=== PATIENT | female | born 1930 | race Caucasian/White ===

== ENCOUNTER 2016-10-18 17:28 | Emergency (ER) | payer OTHER, MEDICARE ==
[~2016-10-18] VITALS: Ht 149.9 cm; Wt 80.3 kg
[~2016-10-18 17:28] MED LIST: ALBUTEROL SULFAT3 M1 INH; AMRIX15 MG PO; CALCIUM600 MG PO; CO-Q-10 100 MG-1 SGL PO; ECOTRIN81 MG PO; FISH OIL CONC1000 MG PO; FUROSEMIDE20 MG PO; KLOR-CON M1010 MEQ PO; NITROGLYCERIN0.4 MG SL; PERCOCET 325 MG1 TA3 PO; PROTONIX 40MG T40 MG PO; SYMBICORT 160/41 PUF INH; TOPROL XL25 MG PO; VITAB121000 PO; [UNRECOGNIZED DRUG - CODE] PO
[2016-10-18 17:32] VITALS: BP 124/70
--- NOTE | 2016-10-18 17:48 | ED GENERAL ADULT ---
History of Present Illness General Chief Complaint: Lower Extremity Injury Stated Complaint: FALL,LT LEG INJ Source: patient Exam Limitations: no limitations Vital Signs & Intake/Output Vital Signs & Intake/Output Vital Signs Date Time Temp Pulse Resp B/P B/P Pulse O2 O2 Flow FiO2 Mean Ox Delivery Rate 10/18 1732 98.2 73 16 124/70 97 Room Air ED Intake and Output 10/19 0000 10/18 1200 Intake Total Output Total Balance Patient 177 lb Weight Weight Reported by Patient Measurement Method Allergies Coded Allergies: NO KNOWN ALLERGIES (01/03/11) Triage Note: PT STATES SHE FELL SUNDAY AM AND FX TWO BONES ON HER LEFT FOOT. PT STATES THE WALK IN SENT HER THERE. PT STATES SHE HAS INCREASED SWELLING AND PAIN Triage Nurses Notes Reviewed? yes Onset: Gradual Duration: day(s): (6) Timing: no prior history Injury Environment: home Severity: moderate Modifying Factors: Improves With: immobilization. Worsens With: movement. HPI: Patient is an 86-year-old female presenting to the emergency department with chief complaint of increased swelling and redness to left lower extremity starting over the past 2-3 days. Patient reports that she was seen and evaluated at a walk-in clinic after she twisted her left foot on Sunday of last week. She was diagnosed with a foot fracture. She was placed in an Zeke wrap and a orthopedic shoe. Patient has been icing and elevating. Reports that she noticed increased redness and swelling over her left calf. She was concerned about blood clots so decided to come in for evaluation. No fevers or chills. No nausea or vomiting. No chest pain palpitations or shortness of breath. (AMENA YANG,PIYUSH) Reconcile Medications Albuterol Sulfate 2.5 MG/3 ML (0.083 %) VIAL.NEB 1 Vial INH/JUAN C TID PRN COPD (Reported) Aspirin (Lo-Dose Aspirin EC) 81 MG TABLET.DR 1 TAB PO DAILY HEART/BLOOD ( Reported) Budesonide/Formoterol Fumarate (Symbicort 160-4.5 Mcg Inhaler) 160 MCG-4.5 MCG/ ACTUATION HFA.AER.AD 2 PUF INH PRN COPD (Reported) Cephalexin (Keflex) 500 MG CAPSULE 1 CAP PO TID cellulitis Cholecalciferol (Vitamin D3) (Vitamin D) 5,000 UNIT TABLET 1 TAB PO QAM SUPPLEMENT (Reported) Esomeprazole (Nexium) 40 MG CAPSULE.DR 1 CAP PO QAM GI (Reported) Furosemide 40 MG TABLET 1 TAB PO QAM DIURETIC (Reported) Linaclotide (Linzess) 145 MCG CAPSULE 1 CAP PO DAILY CONSTIPATION (Reported) Losartan Potassium 25 MG TABLET 1 TAB PO QPM BP (Reported) Lubiprostone (Amitiza) 24 MCG CAPSULE 1 CAP PO BID CONSTIPATION (Reported) Metoprolol Succinate 25 MG TAB 1 TAB PO QPM HEART/BP (Reported) Nitroglycerin (Nitroglycerin Patch) 0.4 MG/HOUR PATCH.TD24 1 PATCH TOP DAILY HEART (Reported) Oxycodone HCl/Acetaminophen (Percocet 7.5-325 MG Tablet) 7.5 MG-325 MG TABLET 1 TAB PO TID PRN PAIN (Reported) Polyethylene Glycol 3350 17 GRAM POWD.PACK 1 PAC PO DAILY GI (Reported) Potassium Chloride (Klor-Con M10) 10 MEQ TAB.ER.PRT 1 TAB PO QAM SUPPLEMENT ( Reported) (LAUREN VERDUZCO,DARYN Magdaleno) Past History Travel History Traveled to [place] past 21 day No Medical History Any Pertinent Medical History? 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 No (PIYUSH FIGUEREDO) Review of Systems Review of Systems Constitutional: Reports: no symptoms. Comments Review of systems: See HPI, All other systems negative. Constitutional, no chills fever or weight loss HEENT: No visual changes no sore throat no congestion Cardiovascular: No chest pain ,palpitation , orthopnea Skin, no jaundice no rashes Respiratory: No dyspnea cough sputum or hemoptysis GI: No nausea no vomiting Muscle skeletal: no back pain, no neck pain, Neurologic: No numbness no confusion Psych: No stress anxiety or depression,. Heme/endocrine: No bruising no bleeding no polyuria or polydipsia Immunology: No splenectomy or history of AIDS (AMENA YANG,PIYUSH) Physical Exam Physical Exam General Appearance: well developed/nourished, no apparent distress, alert, awake , comfortable Comments: Well-developed well-nourished person in no acute distress HEENT: Normocephalic atraumatic. Nose is atraumatic. Neck: Normal inspection Cardiovascular: Regular rate and rhythms no murmurs rubs or gallops, normal JVP Respiratory: . No respiratory distress.breath sounds clear to auscultation bilaterally Extremity: 2+ pitting edema noted in the left lower extremity with mild erythema extending up to mid urena. Positive calf tenderness to palpation in the left lower extremity. Pedal pulses are 2+ bilaterally. Several varicosities noted in the lower cherries bilaterally. Neuro: Alert oriented x3, motor sensory normal Skin: Mild warmth to palpation over the left lower extremity. Psych: Mood and affect is normal, memory and judgment is normal. Core Measures ACS in differential dx? No CVA/TIA Diagnosis: No Severe Sepsis Present: No Septic Shock Present: No (AMENA YANG,PIYUSH) Progress Differential Diagnoses I considered the following diagnoses in my evaluation of the patient: DVT, cellulitis, foot fracture, dependent edema Plan of Care: Orders Procedure Date/time Status US-UNILATERAL VENOUS DOPPLER 10/18 1800 Active Diagnostic Imaging: Viewed by Me: Radiology Read, Ultrasound. Discussed w/RAD: Radiology Read, Ultrasound. Radiology Impression: PATIENT: BETTY TRUJILLO PRESENT AGE: 86 PATIENT ACCOUNT NO: [id number] : 32 LOCATION: [facility] ORDERING PHYSICIAN: PIYUSH YANG SERVICE DATE: 10/18/16 EXAM TYPE: RAD - XRY-FOOT COMPLETE, LEFT EXAMINATION: XR FOOT, LEFT CLINICAL INFORMATION: Pain after twisting foot. COMPARISON: No relevant prior imaging available. TECHNIQUE: AP, lateral, and oblique views of the left foot. FINDINGS: There is an acute comminuted fracture involving the fifth metatarsal diaphysis. No evidence of intra-articular involvement. No dislocation. Mild soft tissue swelling of the distal foot. In addition of this acute finding there are chronic changes including a prominent hallux valgus deformity. IMPRESSION: Acute comminuted fracture involving the fifth metatarsal diaphysis. In addition of this acute finding there is a hallux valgus deformity., PATIENT: BETTY TRUJILLO PRESENT AGE: 86 PATIENT ACCOUNT NO: [id number] : LOCATION: [facility] ORDERING PHYSICIAN: PIYUSH YANG SERVICE DATE: 10/18/16 EXAM TYPE: US - US-UNILATERAL VENOUS DOPPLER EXAMINATION: DOPPLER VENOUS ULTRASOUND EXTREMITY, LEFT CLINICAL INFORMATION: Left lower extremity pain and edema. COMPARISON: None. TECHNIQUE: Grayscale, Doppler and spectral analysis of the lower extremity was performed. FINDINGS: There is no evidence for a deep venous thrombosis within the visualized lower extremity veins. There is normal flow, compression and augmentation. ADDITIONAL FINDINGS: No Pettit's cyst is identified. IMPRESSION: Unremarkable examination. Specifically, no evidence for DVT. DICTATED BY: NATE TURNER MD Initial ED EKG: none Comments: Patient informed of all imaging results. Patient has her to consult with orthopedic. She'll follow-up with same orthopedic. Educated on continuing with orthopedic shoe. She'll take Tylenol as seen for pain. Discussed with Dr. Junior and he agrees with plan. (PIYUSH FIGUEREDO) Departure Departure Time of Disposition: 1923 Disposition: HOME OR SELF CARE Condition: Stable Clinical Impression Primary Impression: Foot fracture Qualifiers: Encounter type: initial encounter Fracture type: closed Laterality: left Qualified Code: S92.902A - Unspecified fracture of left foot, initial encounter for closed fracture Secondary Impressions: Cellulitis Qualifiers: Site of cellulitis: extremity Site of cellulitis of extremity: lower extremity Laterality: left Qualified Code: L03.116 - Cellulitis of left lower limb Referrals: ESTEBAN VERDUZCO,RAND Wall (PCP/Family) Additional Instructions: Follow-up with your orthopedic as scheduled continue wearing the orthopedic shoe and Zeke wrap as directed previously. Rest ice and elevate affected extremity. Take antibiotics as prescribed. Return for worsening symptoms or concerns. Departure Forms: Customer Survey General Discharge Information (PIYUSH FIGUEREDO) Departure Prescriptions: Current Visit Scripts Cephalexin (Keflex) 1 CAP PO TID #30 CAP PA/NETWORK SECURITY ENGINEER Co-Sign Statement Statement: ED Attending supervision documentation- [] I saw and evaluated the patient. I have also reviewed all the pertinent lab results and diagnostic results. I agree with the findings and the plan of care as documented in the PA's/NETWORK SECURITY ENGINEER's documentation. [x] I have reviewed the ED Record and agree with the PA's/NETWORK SECURITY ENGINEER's documentation. [] Additions or exceptions (if any) to the PAs/NETWORK SECURITY ENGINEER's note and plan are summarized below: [] (LAUREN VERDUZCO,DARYN Magdaleno) Procedures Splinting Location: left foot Manual Alignment Performed: No Pre-Made Type: ortho shoe Splint: ortho shoe Splint Applied By: splint applied by me Pre-Proc Neuro Vasc Exam: normal Post-Proc Neuro Vasc Exam: normal Progress: toelrated procedure well (PIYUSH FIGUEREDO) Critical Care Note Critical Care Note Critical Care Time: non-applicable (PIYUSH FIGUEREDO)
[2016-10-18] MEDS ORDERED: AMITIZA24 MC1 PO (18:38)
[2016-10-18] MEDS ORDERED: PERCOCET 7.5-31 EACH PO (18:38)
[2016-10-18] MEDS ORDERED: LINZESS145 MC1 PO (18:38)
--- NOTE | 2016-10-18 18:38 | RADIOLOGY REPORT ---
EXAMINATION: XR FOOT, LEFT CLINICAL INFORMATION: Pain after twisting foot. COMPARISON: No relevant prior imaging available. TECHNIQUE: AP, lateral, and oblique views of the left foot. FINDINGS: There is an acute comminuted fracture involving the fifth metatarsal diaphysis. No evidence of intra-articular involvement. No dislocation. Mild soft tissue swelling of the distal foot. In addition of this acute finding there are chronic changes including a prominent hallux valgus deformity. IMPRESSION: Acute comminuted fracture involving the fifth metatarsal diaphysis. In addition of this acute finding there is a hallux valgus deformity.
[2016-10-18] MEDS ORDERED: NEXIUM40 M1 PO (18:39)
[2016-10-18] MEDS ORDERED: FUROSEMIDE40 M1 PO (18:39)
[2016-10-18] MEDS ORDERED: LO-DOSE ASPIRIN81 MG PO (18:40)
[2016-10-18] MEDS ORDERED: LOSARTAN POTASS25 M1 PO (18:41)
[2016-10-18] MEDS ORDERED: KLOR-CON M1010 ME1 PO (18:42)
[2016-10-18] MEDS ORDERED: METOPROLOL SUCC25 M1 PO (18:44)
[2016-10-18] MEDS ORDERED: VITAMIN D5000 UNIT PO (18:45)
[2016-10-18] MEDS ORDERED: POLYETHYLENE GL17 GM PO (18:46)
[2016-10-18] MEDS ORDERED: ALBUTEROL2.5 MG/3 M INH/SOL (18:47)
[2016-10-18] MEDS ORDERED: SYMBICORT 16010.2 GM INH (18:47)
[2016-10-18] MEDS ORDERED: NITROGLYCERIN1 EACH TOP (18:48)
--- NOTE | 2016-10-18 19:18 | ULTRASOUND REPORT ---
EXAMINATION: DOPPLER VENOUS ULTRASOUND EXTREMITY, LEFT CLINICAL INFORMATION: Left lower extremity pain and edema. COMPARISON: None. TECHNIQUE: Grayscale, Doppler and spectral analysis of the lower extremity was performed. FINDINGS: There is no evidence for a deep venous thrombosis within the visualized lower extremity veins. There is normal flow, compression and augmentation. ADDITIONAL FINDINGS: No Pettit's cyst is identified. IMPRESSION: Unremarkable examination. Specifically, no evidence for DVT.
[2016-10-18] MEDS ORDERED: KEFLEX500 M1 PO (20:00)
== END 2016-10-18 20:07 ==
LOC: ERH 17:28
DX: S92.352A Displaced fracture of fifth metatarsal bone, left foot, initial encounter for closed fracture (principal); L03.116 Cellulitis of left lower limb; X58.XXXA Exposure to other specified factors, initial encounter; Y92.9 Unspecified place or not applicable; Y93.9 Activity, unspecified
CPT/HCPCS: 73630-LT

== ENCOUNTER 2016-10-30 11:48 | Inpatient (IN) | payer OTHER, MEDICARE ==
[~2016-10-30] VITALS: Ht 149.9 cm; Wt 80.7 kg
[~2016-10-30 11:48] MED LIST changes: +ALBUTEROL2.5 MG/3 M INH/SOL; +AMITIZA24 MC1 PO; +FUROSEMIDE40 M1 PO; +KEFLEX500 M1 PO; +KLOR-CON M1010 ME1 PO; +LINZESS145 MC1 PO; +LO-DOSE ASPIRIN81 MG PO; +LOSARTAN POTASS25 M1 PO; +METOPROLOL SUCC25 M1 PO; +NEXIUM40 M1 PO; +NITROGLYCERIN1 EACH TOP; +PERCOCET 7.5-31 EACH PO; +POLYETHYLENE GL17 GM PO; +SYMBICORT 16010.2 GM INH; +VITAMIN D5000 UNIT PO
--- NOTE | 2016-10-30 11:56 | NUR ---
PT SENT IN BY DR. ANGEL FOR LEFT FOOT CELLULITIS. PER MD PT HAS BEEN TAKING ORAL ANTIBIOTICS FOR A WEEK WITH NO IMPROVEMENT. PT CONTINUES TO HAVE INTERMITTENT FEVERS AND INFECTION IS SPREADING FROM FOOT AND GOING UP LEFT LEG. PT STATES MD WOULD LIKE PT ADMITTED FOR IV ABX
--- NOTE | 2016-10-30 12:41 | NUR ---
RESIDENT AT BEDSIDE FOR EVAL.
--- NOTE | 2016-10-30 13:28 | ED SKIN/ALLERGY COMPLAINT ---
History of Present Illness General Chief Complaint: Lower Extremity Problems Stated Complaint: L FOOT INFECTION Source: patient, family Exam Limitations: no limitations Allergies Coded Allergies: NO KNOWN ALLERGIES (01/03/11) Reconcile Medications Albuterol Sulfate 2.5 MG/3 ML (0.083 %) VIAL.NEB 1 Vial INH/JUAN C TID PRN COPD (Reported) Aspirin (Lo-Dose Aspirin EC) 81 MG TABLET.DR 1 TAB PO DAILY HEART/BLOOD ( Reported) Budesonide/Formoterol Fumarate (Symbicort 160-4.5 Mcg Inhaler) 160 MCG-4.5 MCG/ ACTUATION HFA.AER.AD 2 PUF INH PRN COPD (Reported) Cephalexin (Keflex) 500 MG CAPSULE 1 CAP PO TID cellulitis Cholecalciferol (Vitamin D3) (Vitamin D) 5,000 UNIT TABLET 1 TAB PO QAM SUPPLEMENT (Reported) Esomeprazole (Nexium) 40 MG CAPSULE.DR 1 CAP PO QAM GI (Reported) Furosemide 40 MG TABLET 1 TAB PO QAM DIURETIC (Reported) Linaclotide (Linzess) 145 MCG CAPSULE 1 CAP PO DAILY CONSTIPATION (Reported) Losartan Potassium 25 MG TABLET 1 TAB PO QPM BP (Reported) Lubiprostone (Amitiza) 24 MCG CAPSULE 1 CAP PO BID CONSTIPATION (Reported) Metoprolol Succinate 25 MG TAB 1 TAB PO QPM HEART/BP (Reported) Nitroglycerin (Nitroglycerin Patch) 0.4 MG/HOUR PATCH.TD24 1 PATCH TOP DAILY HEART (Reported) Oxycodone HCl/Acetaminophen (Percocet 7.5-325 MG Tablet) 7.5 MG-325 MG TABLET 1 TAB PO TID PRN PAIN (Reported) Polyethylene Glycol 3350 17 GRAM POWD.PACK 1 PAC PO DAILY GI (Reported) Potassium Chloride (Klor-Con M10) 10 MEQ TAB.ER.PRT 1 TAB PO QAM SUPPLEMENT ( Reported) Sulfamethoxazole/Trimethoprim (Sulfamethoxazole-Tmp Ds Tablet) 800 MG-160 MG TABLET 1 TAB PO BID ANTIBIOTIC, INFECTION (Reported) Triage Note: PT SENT IN BY DR. ANGEL FOR LEFT FOOT CELLULITIS. PER MD PT HAS BEEN TAKING ORAL ANTIBIOTICS FOR A WEEK WITH NO IMPROVEMENT. PT CONTINUES TO HAVE INTERMITTENT FEVERS AND INFECTION IS SPREADING FROM FOOT AND GOING UP LEFT LEG. PT STATES MD WOULD LIKE PT ADMITTED FOR IV ABX PT TEMP ON ARRIVAL 99.8, PT BP 90/53. PER PT BP NORMALLY RUNS 107/60 Triage Nurses Notes Reviewed? yes Onset: 2 weeks ago Duration: week(s): Location: L foot Associated Symptoms: edema, fever, malaise HPI: Patient is a 86-year-old female with past medical history of GERD, hypertension, COPD, prior myalgia, arthritis, obstructive sleep apnea presenting for worsening left foot cellulitis. The patient states that her symptoms began 2 weeks ago when she fell and broke her fifth metatarsal. A few days later she noted erythema that was warm and tender to the touch on her left foot. She was last seen at the [place] emergency department on October 18 and was prescribed cephalexin for her cellulitis. The patient reports that the cephalexin made her feel sick and she followed up with her primary care physician Dr. Nunn who switched her antibiotics last week. The patient is unsure which antibiotic she has been taking the last week. The patient saw Dr. Nunn today for worsening cellulitis despite oral antibiotics and he suggested that she come into the emergency department to be admitted for IV antibiotics. Her cellulitis is associated with fevers with Tmax @ 101.7, chills, headaches, dizziness, confusion, shortness of breath, and nausea causing her to have decreased appetite. She denies any night sweats, chest pain, abdominal pain, vomiting, or changes in elimination. (EVI VERDUZCO,[facility]) Vital Signs & Intake/Output Vital Signs & Intake/Output Vital Signs Date Time Temp Pulse Resp B/P B/P Pulse O2 O2 Flow FiO2 Mean Ox Delivery Rate 10/30 1851 101.6 10/30 1808 101.6 77 18 130/60 96 10/30 1605 98.6 68 18 118/57 93 Room Air 10/30 1414 99.4 71 16 94/52 93 Room Air 10/30 1157 99.8 75 20 90/53 97 Room Air Past History Travel History Traveled to [place] past 21 day No Medical History Any Pertinent Medical History? 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 No (CRISTIN STEVE MDH) Medical History Any Pertinent Medical History? see below for history (KATHY ESPINO DO) Review of Systems Review of Systems Constitutional: Reports: see HPI, chills, fever, malaise. Denies: diaphoresis. Respiratory: Reports: short of breath. Cardiovascular: Denies: chest pain. GI: Reports: nausea. Denies: abdominal pain, changes in stool, vomiting. Genitourinary: Denies: dysuria, frequency, nocturia. Neurological/Psychological: Reports: confusion, headache. (YURI STEVE MD) Review of Systems Constitutional: Reports: no symptoms. EENTM: Reports: no symptoms. Respiratory: Reports: no symptoms. Cardiovascular: Reports: no symptoms. GI: Reports: no symptoms. Genitourinary: Reports: no symptoms. Musculoskeletal: Reports: see HPI. Skin: Reports: see HPI. Neurological/Psychological: Reports: weakness. Hematologic/Endocrine: Reports: no symptoms. Immunologic/Allergic: Reports: no symptoms. All Other Systems: Reviewed and Negative (KATHY ESPINO DO) Physical Exam Physical Exam General Appearance: well developed/nourished, no apparent distress, alert, awake Head: atraumatic, normal appearance Eyes: Bilateral: PERRL, EOMI. Neck: normal inspection, supple, no lymphadenopathy Respiratory: normal breath sounds Cardiovascular: regular rate/rhythm, 4+ pitting edema bilaterally of lower extremity, no JVD Peripheral Pulses: 2+ radial (R), 2+ radial (L), 2+ tibialis posterior (R), 2+ tibialis posterior ( L), 2+ dorsalis pedis (R), 2+ dorsalis pedis (L) Gastrointestinal: normal bowel sounds, soft, non-tender Extremities: normal capillary refill, 5/5 strength b/l of all peripheral extremities, R calf tenderness with palpation, L foot erythema, warm to touch, tender upon palpation (EVI VERDUZCO,YURI) Progress Differential Diagnosis: abscess/cellulitis, allergic reaction, anaphylaxis, contact dermatitis, drug reaction, urticaria, DVT Radiology Impression: venous doppler negative for DVT Initial ED EKG: none Comments: Patient presenting for worsening L leg cellulitis s/p failed outpt therapy. T- max 101.6. Was given 650mg tylenol in ED. WBC 4.4. Also found to have BUN 43 and Cr 3.5 (baseline 1.0). Was given 2L of fluid for possible sepsis and intial BP of 90/53. BP now 130/60. 1 dose 1500mg unasyn given for cellulitis in ED. Lactic acid 1.0. CXR still pending for concern of CHF due to 4+ pitting edema b/l but no crackles on exam. Foot XR still pending. UA negative. B/L doppler negative for DVT. Patient has difficulty voiding and was straight cathed in ED. Blood cultures pending. Pt being admitted for IV abx and treatment of GODWIN. (EVI VERDUZCO,[facility]) Plan of Care: Orders Procedure Date/time Status Heart Healthy Diet 10/31 B Active ED Holding Orders 10/30 1926 Active Admit to inpatient 10/30 1926 Active Vital Signs 10/30 192 Active Code Status 10/30 192 Active URINE SMEAR FOR EOS 10/30 185 Active URINALYSIS 10/30 1856 Active Straight Cath 10/30 1825 Active Patient Data 10/30 1807 Active LACTIC ACID 10/30 1614 Active B-TYPE NATRIURETIC PEP (BNP) 10/30 1600 Complete XRY-PORTABLE CHEST XRAY 10/30 1328 Active XRY-FOOT COMPLETE, LEFT 10/30 1314 Active BLOOD CULTURE 10/30 1314 Active LACTIC ACID 10/30 1314 Complete COMPREHENSIVE METABOLIC PANEL 10/30 1314 Complete CBC WITHOUT DIFFERENTIAL 10/30 1314 Complete Laboratory Tests 10/30/16 1930: Ur Eosinophil Smear Pending 10/30/16 1930: Urine Color Pending, Urine Clarity Pending, Urine pH Pending, Ur Specific [place] Pending, Urine Protein Pending, Urine Ketones Pending, Urine Nitrite Pending, Urine Bilirubin Pending, Urine Urobilinogen Pending, Ur Leukocyte Esterase Pending, Ur Microscopic Pending, Urine Hemoglobin Pending, Urine Glucose Pending 10/30/16 1600: Anion Gap 12, Estimated GFR 12 L, BUN/Creatinine Ratio 12.3, Glucose 88, Lactic Acid 1.0, Calcium 9.0, Total Bilirubin 0.4, AST 32, ALT 40, Alkaline Phosphatase 77, Cmu-S-Fsnwkicwujk Pept 2050 H, Total Protein 6.1 L, Albumin 3.7, Globulin 2.4, Albumin/Globulin Ratio 1.5, CBC w Diff NO MAN DIFF REQ, RBC 3.21 L, MCV 93.8, MCH 31.7 H, RDW 13.9, MPV 8.1, Gran % 60.5, Lymphocytes % 17.9 L, Monocytes % 7.1, Eosinophils % 14.2 H, Basophils % 0.3, Absolute Granulocytes 2.7, Absolute Lymphocytes 0.8 L, Absolute Monocytes 0.3, Absolute Eosinophils 0.6, Absolute Basophils 0, PUBS MCHC 33.8 10/30/16 1336: Fyj-U-Zpysyqgviwd Pept Cancelled Microbiology 10/30 1600 BLOOD: Blood Culture - RECD 10/30 1314 BLOOD: Blood Culture - ORD Initial ED EKG: NSR (KATHY ESPINO DO) Departure Departure Condition: Stable Referrals: RAND ORELLANA MD (PCP/Family) Departure Forms: Customer Survey General Discharge Information Admission Note Spoke With: KIMBERLY MORRIS MD Documentation of Exam: Documentation of any treatments & extenuating circumstances including Concerns Regarding Discharge (functional status, medication knowledge or non-compliance, living conditions, etc.) that warrant an admission rather than observation: (EVI VERDUZCO,[facility]) Departure Disposition: STILL A PATIENT Clinical Impression Primary Impression: Cellulitis Admission Note Spoke With: KIMBERLY MORRIS MD Documentation of Exam: Documentation of any treatments & extenuating circumstances including Concerns Regarding Discharge (functional status, medication knowledge or non-compliance, living conditions, etc.) that warrant an admission rather than observation: [ Patient needs admission for IV antibiotics, leg elevation, consider wound consultation. She status post hypotension, leukocytosis, failing outpatient oral antibiotics] PA/POTATO INSPECTOR Co-Sign Statement Statement: ED Attending supervision documentation- [] I saw and evaluated the patient. I have also reviewed all the pertinent lab results and diagnostic results. I agree with the findings and the plan of care as documented in the PA's/POTATO INSPECTOR's documentation. [] I have reviewed the ED Record and agree with the PA's/POTATO INSPECTOR's documentation. [] Additions or exceptions (if any) to the PAs/POTATO INSPECTOR's note and plan are summarized below: [] Resident Co-Sign Statement Statement: ED Attending supervision documentation- [X] I saw and evaluated the patient. I have also reviewed all the pertinent lab results and diagnostic results. I agree with the findings and the plan of care as documented in the Resident's documentation. [] I have reviewed the ED Record and agree with the Resident's documentation. [] Additions or exceptions (if any) to the Resident's note and plan are summarized below: [] Left lower extremity cellulitis (KATHY SEPINO DO.)
--- NOTE | 2016-10-30 13:28 | NUR ---
PT TO RAD.
[2016-10-30] MEDS ORDERED: SULFAMETHOXAZO1 EAC1 PO (14:47)
--- NOTE | 2016-10-30 15:00 | NUR ---
UNABLE TO ACCESS IV/LABS X2
--- NOTE | 2016-10-30 15:31 | NUR ---
ASSUMED CARE OF PT. PT IN ULTRASOUND
--- NOTE | 2016-10-30 15:51 | ULTRASOUND REPORT ---
EXAMINATION: US TRIPLEX OF LOWER EXTREMITIES, BILATERAL CLINICAL INFORMATION: Bilateral lower extremity edema pain swelling inflammation and tenderness COMPARISON: None TECHNIQUE: Color-flow triplex imaging with spectral analysis and compression Doppler were performed on the lower extremities. FINDINGS: Respiratory variation, normal compression and augmented flow are noted throughout the lower extremities. The visualized common femoral vein, superficial femoral vein, profunda femoral vein, popliteal vein and midcalf peroneal and posterior tibial venous segments show no evidence of deep venous thrombosis. There is no Pettit's cyst. IMPRESSION: Normal triplex scan without evidence of deep venous thrombosis involving the lower extremities.
--- NOTE | 2016-10-30 16:05 | NUR ---
RETURNED FROM ULTRASOUND. IV AND ONE SET OF CULTURES OBTAINED. PT DIFFICULT STICK, UNABLE TO GET SECOND SET OF CULTURES
[2016-10-30 16:13] LABS: ABSOLUTE BASOPHIL COUNT 0 /CUMM (0.0-0.2); ABSOLUTE EOSINOPHIL COUNT 0.6 /CUMM (0.0-0.7); ABSOLUTE GRANULOCYTE CT 2.7 /CUMM (1.4-6.5); ABSOLUTE LYMPH COUNT 0.8 /CUMM (1.2-3.4); ABSOLUTE MONOCYTE COUNT 0.3 /CUMM (0.10-0.60); BASOPHIL % 0.3 % (0.0-2.0); EOSINOPHIL % 14.2 % (0-5); GRANULOCYTE % 60.5 % (42.2-75.2); HEMATOCRIT 30.1 % (37-47); MEAN CORPUSCULAR HGB 31.7 PG (27.0-31.0); MEAN CORPUSCULAR HGB CONC 33.8 G/DL (33.0-37.0); MEAN CORPUSCULAR VOLUME 93.8 FL (81.0-99.0); MEAN PLATELET VOLUME 8.1 FL (7.4-10.4); PLATELET COUNT 238 /CUMM (130-400); RBC DISTRIBUTION WIDTH 13.9 % (11.5-14.5); RED BLOOD CELL CT 3.21 /CUMM (4.20-5.40); WHITE BLOOD CELL COUNT 4.4 /CUMM (4.8-10.8)
--- NOTE | 2016-10-30 16:13 | NUR ---
PT DIFFICULT STICK ONLY ABLE TO OBTAIN ONE B/C SET LABS DRAWN AND SENT, LAV,YELLOW,BLUE,JAVIER,PINK TOP
--- NOTE | 2016-10-30 17:30 | NUR ---
PT COMPLAINING OF BEING COLD. EXTRA BLANKETS PLACED ON PT.
--- NOTE | 2016-10-30 18:51 | NUR ---
PT WITH URGE TO VOID. UNABLE TO VOID ON BEDPAN. PT TOO WEAK TO STAND UP AND USE COMMODE. BLADDER SCAN DONE AND READ 150-200CC OF URINE IN BLADDER. ORDER RECIEVED TO CATH PT. CATH INSERTED WITHOUT DIFFICULTY-APPROX 400CC OUTPUT CLEAR URINE
--- NOTE | 2016-10-30 18:53 | NUR ---
TYLENOL GIVEN FOR TEMP
--- NOTE | 2016-10-30 19:43 | History & Physical ---
MICHOACANO VERDUZCO,ANAND 10/30/161941: General Information and HPI MD Statement: I have seen and personally examined BETTY TRUJILLO and documented this H&P. The patient is a 86 year old F who presented with a patient stated chief complaint of [cellulitis]. Source of Information: patient, old records Exam Limitations: no limitations History of Present Illness: pt is an 86 yo F with a pmh significant for HTN, COPD , spinal stenosis, disc herniation, fibromyalgia, arthritis, GERD, and constipation. She presents to the ED today at the recommendation of her PCP Dr. Nunn for unresolving LLE cellulitis. Approximately two weeks ago she suffered a fall, and broke her 5th metatarsal. She presented to the ED on 10/18 with erythema, swelling, and tenderness, she was discharged on cephalexin. Her PCP switched her to bactrim. Despite antibiotic treatment the redness continued to spread, the pain became worse and the pt experienced nightly fevers and chills. In the ED today, she is complaining of headache, chills, SOB, nausea, blurred vision, and decreased PO intake. She chest pain, cough, night sweats, abdominal pain, vomiting, or changes in urine or bowel movements. Allergies/Medications Allergies: Coded Allergies: NO KNOWN ALLERGIES (01/03/11) Home Med list Albuterol Sulfate 2.5 MG/3 ML (0.083 %) VIAL.NEB 1 Vial INH/JUAN C TID PRN COPD (Reported) Aspirin (Lo-Dose Aspirin EC) 81 MG TABLET.DR 1 TAB PO DAILY HEART/BLOOD ( Reported) Budesonide/Formoterol Fumarate (Symbicort 160-4.5 Mcg Inhaler) 160 MCG-4.5 MCG/ ACTUATION HFA.AER.AD 2 PUF INH PRN COPD (Reported) Cholecalciferol (Vitamin D3) (Vitamin D) 5,000 UNIT TABLET 1 TAB PO QAM SUPPLEMENT (Reported) Esomeprazole (Nexium) 40 MG CAPSULE.DR 1 CAP PO QAM GI (Reported) Furosemide 40 MG TABLET 1 TAB PO QAM DIURETIC (Reported) Linaclotide (Linzess) 145 MCG CAPSULE 1 CAP PO DAILY CONSTIPATION (Reported) Losartan Potassium 25 MG TABLET 1 TAB PO QPM BP (Reported) Lubiprostone (Amitiza) 24 MCG CAPSULE 1 CAP PO BID CONSTIPATION (Reported) Metoprolol Succinate 25 MG TAB 1 TAB PO QPM HEART/BP (Reported) Nitroglycerin (Nitroglycerin Patch) 0.4 MG/HOUR PATCH.TD24 1 PATCH TOP DAILY HEART (Reported) Oxycodone HCl/Acetaminophen (Percocet 7.5-325 MG Tablet) 7.5 MG-325 MG TABLET 1 TAB PO TID PRN PAIN (Reported) Polyethylene Glycol 3350 17 GRAM POWD.PACK 1 PAC PO DAILY GI (Reported) Potassium Chloride (Klor-Con M10) 10 MEQ TAB.ER.PRT 1 TAB PO QAM SUPPLEMENT ( Reported) Past History Travel History Traveled to [place] past 21 day No Medical History Neurological: NONE EENT: NONE Cardiovascular: hypertension Respiratory: COPD Gastrointestinal: GERD, hiatal hernia Hepatic: NONE Renal: NONE Musculoskeletal: fibromyalgia, osteoarthritis, CHRONIC BACK PAIN Psychiatric: NONE Endocrine: NONE Blood Disorders: NONE Cancer(s): NONE 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 EENTM: Reports: blurred vision. Denies: eye pain. Cardiovascular: Denies: chest pain. Respiratory: Reports: short of breath. Denies: cough. GI: Reports: constipation, nausea. Denies: abdominal pain, melena, bloody stool, changes in stool, vomiting. Genitourinary: Denies: dysuria, hematuria, pain. Musculoskeletal: Reports: muscle pain. Skin: Reports: erythema. Denies: dryness, lesions. Neurological/Psychological: Reports: headache. Exam & Diagnostic Data Last 24 Hrs of Vital Signs/I&O Vital Signs Date Time Temp Pulse Resp B/P B/P Pulse O2 O2 Flow FiO2 Mean Ox Delivery Rate 10/30 2242 98.2 74 20 108/50 93 Room Air 10/30 2214 Room Air 10/30 2124 100.4 75 20 106/42 94 Room Air 10/308 101.4 73 18 102/44 93 Room Air 10/30 1851 101.6 10/30 1808 101.6 77 18 130/60 96 10/30 1605 98.6 68 18 118/57 93 Room Air 10/30 1414 99.4 71 16 94/52 93 Room Air 10/30 1157 99.8 75 20 90/53 97 Room Air Intake & Output 10/31 0800 10/31 0000 10/30 1600 Intake Total 1220 Output Total 1100 Balance 120 Intake, IV 1100 Intake, Oral 120 Output, Urine 1100 Patient 178 lb Weight Physical Exam General Appearance Alert, Oriented X3, Cooperative, No Acute Distress Skin Temp/Moisture Exam: Warm/Dry Sepsis Skin Exam (color): Normal for Ethnicity HEENT Atraumatic, PERRLA, EOMI, mucous membranes were dry on exam Neck Supple, JVD with positive hepatojugular reflux Cardiovascular Regular Rate, Normal S1, Normal S2, No Murmurs Lungs Clear to Auscultation, Normal Air Movement Abdomen Normal Bowel Sounds, Soft, No Hepatospenomegaly, No Masses, mild TTP in the LUQ Neurological Normal Speech, Strength at 5/5 X4 Ext, Sensation Intact, Cranial Nerves 3-12 NL Extremities Normal Pulses, LLE between the knee and ankle is warm, erythematous and tender to palpation worse on the posterior aspect, L foot is TTP 2/2 fracture of the 5th metatarsal , RLE on the medial calf, warm, erythema, and TTP , much less than on L Vascular Normal Pulses, Pulses Symmetrical Sepsis Peripheral Pulse Location: Dorsalis Pedis Sepsis Peripheral Pulse Exam: Normal Sepsis Cap Refill Exam: <2 Sec Diagnostic Data EKG Results EKG showed sinus rhythm at rate 74, AL 180, QRS 70, QTc 440 CXR Results US TRIPLEX OF LOWER EXTREMITIES, BILATERAL IMPRESSION: Normal triplex scan without evidence of deep venous thrombosis involving the lower extremities. Assessment/Plan Assessment: pt is an 86 yo F with a pmh significant for HTN, ?COPD , spinal stenosis, disc herniation, fibromyalgia, arthritis, GERD, and constipation. She presented to the ED today with LLE cellulitis after failing outpatient antibiotic therapy. In the Ed she was given 1 dose of IV Unasyn, and a 2.5 L NS bolus. #L Leg Cellulitis After the dose of unasyn, her temperature sade to from 99.8 to 101.6. No urine eos were seen but this brings up concern for potential acute interstitial nephritis. - admit to gen med - c/w unasyn, if fever or increase in Cr switch to clindamycin - f/u blood cultures and change antibiotics accordingly - f/u lactic acid, 1.0 on admission - pain management - keep leg elevated #GODWIN BUN 43, creatinine of 3.5 (last creatinine was 1.0 two years ago) -IVF 100 mL/hour for 1 L, reassess in AM. #DVT prophylaxis DVT ruled out by U/S in ED - heparin SQ #Diet -heart healthy #code status -Full Code As Ranked By This Provider Problem List: 1. Cellulitis Core Measures/Miscellaneous Acute Coronary Syndrome ACS Diagnosis: No Cerebrovascular Accident CVA/TIA Diagnosis: No Congestive Heart Failure CHF Diagnosis: No VTE (View Protocol) VTE Risk Factors: Age > 40, Obesity No [facility] prophylaxis d/t: No contraindications No VTE Pharm Prophylaxis d/t: No contraindications VTE Diagnosis: No VTE Type: NONE VTE Confirmed by (Test): NONE Sepsis (View Protocol) Severe Sepsis Present: No Septic Shock Septic Shock Present: No Miscellaneous Documentation Attending Case Discussed With: ALEXANDRA VERDUZCO,KIMBERLY Primary Care Physician: RAND ORELLANA MD Patient sees these Specialists Dr Nunn PCP Dr Bishop Cardiology Dr Corrigan Level of Patient Care: General Medicine VIMAL ELIZABETH MD 10/31/16 0020: Resident Review Statement Resident Statement: examined this patient, discussed with internet consultant, agreed with internet consultant, reviewed EMR data (avail), discussed with nursing, reviewed images Other Findings: 86-year-old female with past medical history of hypertension (follows Dr Bishop ), COPD (follows Dr Corrigan, but PFT from 2013 was normal), spinal stenosis, disc herniation, GERD, constipation, and a recent emergency department visit for left lower extremity cellulitis was referred from primary care physician (Dr Nunn) to the ED today for evaluation and management of out patient antibiotic therapy failure for lower extremity cellulitis. Her symptoms had started after she fell and broke her fifth metatarsal, and noticed swelling, pain and redness. She had received cephalexin initially from the ED and was switched to Bactrim by her PCP, but continued to have fevers, chills, nausea, worsening pain/swelling/redness of lower extremity despite the oral antibiotics. In the emergency department, she initially presented with low blood pressure 90/ 53, pulse 75, temperature 99.8, respirations 20, pulse ox 97% on room air. She received 1 dose of IV Unasyn, and 2.5L normal saline bolus which improved the blood pressure to 130/60 and pulse 77. However at the time of interview, her temperature was 101.4 F and blood pressure had dropped to 102/44 with pulse 73. On examination, patient was obese, comfortable, not in distress, and dry mucosa, bilateral fine crepitations over the lower lung base, not in respiratory distress, JVD with positive hepatojugular reflux present. Lower extremity examination revealed bilateral leg swelling with prominent erythema over the legs L>R, significant tenderness, but no open wound. Distal neurovascular and sensory status was intact. EKG showed sinus rhythm at rate 74, AL 180, QRS 70, QTc 440. Echo done in 06/25/2013 showed ejection fraction more than 65% with stage I diastolic heart failure, mild MR pain RV systolic pressure 35. She doesn't have leukocytosis (WBC 4.4, 60% granulocytes, no bandemia) with eosinophilia 14.2%, H&H is 10.1/30.1, platelet 238, chemistry shows increased creatinine of 3.5 (last creatinine was 1.0 two years ago), BUN 43, sodium 135, potassium 5.0, glucose 88, lactic acid 1.0. Her proBNP was high 2049. Urinalysis was negative and no eosinophilia in the smear. Bilateral lower extremity Doppler ultrasound did not reveal any DVT or ruptured Pettit's cyst. Patient is currently being admitted for management of following issues: #Left lower extremity cellulitis, failed outpatient treatment Patient continued to have worsening symptoms despite on oral antibiotics as an outpatient, thus warrants an inpatient management with IV antibiotics. * Continue IV Unasyn, adjusted to renal dose, pending blood cultures * If the patient continues to have fever, or high creatinine (question about eosinophilia due to cephalexin that can also be caused by Unasyn theoritically), next antibiotic of choice could be clindamycin. * Continue IV hydration at 100 mL per hour with 1 L for now * Lactic acid initially was 1.0, we'll trend one more time * Limb elevation * Adequate pain management * DVT prophylaxis with heparin subcutaneous #GODWIN Cr today is 3.5, and the last one was 1.0 two yrs ago. * Hold antihypertensive medications for now, given the low blood pressure, and the GODWIN * Continue IV hydration, avoid nephrotoxic drugs, make sure of no obstruction ( bladder scan if low urine output to rule out obstruction). #Continue rest of her home medications. #Diet: Heart healthy #DVT ppx: SQ Heparin #Code status: Full code LINNETTE MCGILL 10/31/16 0201: Attending MD Review Statement Attending Statement Attending MD Statement: examined this patient, discuss w/resident/PA/BILLING MACHINE OPERATOR, agreed w/resident/PA/BILLING MACHINE OPERATOR, reviewed EMR data (avail), reviewed images, amended to note Attending Assessment/Plan: CC: Left foot cellulitis PMH: HTN, BETITO, GERD, COPD/restrictive disease, hard of hearing, spinal stenosis, fibromyalgia Patient was sent to by her PCP for worsening left foot redness and pain. Her symptoms began 2 weeks ago when she fell and broke her bone and left foot then a few days later she noted redness and pain in her left leg up to knee. She visited ER at that time and was prescribed antibiotics. Pain and redness was not getting better but she was getting sick because of antibiotics so she followed up with her primary care physician on October 24 when he changed antibiotics to Bactrim. Bactrim caused more nausea but leg pain and redness was getting better according to her. It still persisted after 10 days so she visited PCP today who sent her to ER for IV antibiotics. Even on antibiotics at home patient was getting chills and fever every night maximum up to 101.7. She endorses headaches , dizziness, confusion, nausea, blurry vision and decreased appetite. Even though she had severe nausea, she did not have actual vomiting, no diarrhea. She denies any night sweats, chest pain, abdominal pain, change in urination, burning urination, skin rashes. Since last 2 weeks, she is ambulating less because of the pain. All this while she was compliant with all her home medications including Lasix, losartan, metoprolol, nitroglycerin. Vitals: Tmax 101.6, HR 70s, RR 20, bleed BP on arrival 90/52, responded to 3 L normal saline went up to 130/60, saturating well on room air On exam: A O 3, cooperative, no acute distress, neck supple, JVD normal, no lymphadenopathy, mucosa dry, no focal neurological deficit, trace edema bilateral lower extremity, cellulitis (increased temperature, redness, tender to touch ) left lower extremity, mild redness medial aspect of right lower extremity. ROM in left knee and ankle intact, no evidence of any effusion, no open wounds, no crepitus CVS: S1-S2, RRR. RS: Clear to auscultate bilaterally. Abdomen: Soft, NT, ND, bowel sounds present. Peripheral pulses perfusion normal Labs: WBC 4.4, hemoglobin 10.1, platelets 239, MCV 93, RDW 13.9, eosinophils 14% , neutrophils 60%, BUN 43, creatinine 3.5, lactate 1.0, LFT unremarkable, proBNP 2050, UA unremarkable Bilateral lower extremity Doppler Normal triplex scan without evidence of deep venous thrombosis involving the lower extremities. RAD - XRY-FOOT COMPLETE, LEFT: on Acute comminuted fracture involving the fifth metatarsal diaphysis. In addition of this acute finding there is a hallux valgus deformity. EKG: Unremarkable A and P 86-year-old female twisted her left foot 2 weeks back and was evaluated in walk- in clinic, was told that she has fracture and placed on marga wrap and orthopedic shoe. Then she developed a cellulitis of left lower extremity for which she was seen in ER on October 18 and prescribed Keflex . She had severe nausea with Keflex and leg redness did not improve so she followed up with PCP who changed antibiotics to Bactrim. Nausea persisted without any significant vomiting. Leg swelling and redness was not getting better, she followed up with PCP today who sent her to ER for IV antibiotics. She has been getting fever and chills every night according to her. Blood pressure and soft side in ER, probably because of dehydration, infection along with her Nitropatch. Left lower extremity shows mild cellulitis without any collection or crepitus, range of motion intact of adjacent joints. Her creatinine is markedly elevated to 3.5, previous comparison value being 0.8 which is 2 years back. According to patient her last blood work was 6 months back without any abnormality. Patient has eosinophilia but does not have any prominent rash. Urine eosinophils negative. She appears dehydrated on exam. Most likely a Chiari secondary to infection, dehydration at the same time AIN should be considered if no improvement with current treatment. Perry was placed because patient was unable to void in ER on bedpan and could not walk because of pain. + Left lower extremity cellulitis + Acute kidney injury + Anemia + History of HTN, BETITO, GERD, COPD/restrictive disease, hard of hearing, spinal stenosis, fibromyalgia - Admit to general medicine - Continue gentle hydration - Strict I's and O's - DC Perry tomorrow if patient is able to void - Hold Lasix, losartan, nitroglycerin, metoprolol - Reassess blood pressure and creatinine tomorrow to restart these medications gradually - If no improvement in creatinine then obtain renal ultrasound - Blood culture 2 - Trend lactate - Continue Unasyn but if patient spikes fever again on Unasyn or worsen and creatinine then change to clindamycin - DVT prophylaxis with heparin - Adequate pain control - Continue CPAP if patient uses at night - Nebulization treatment when necessary - Continue home aspirin, Symbicort, Nexium
--- NOTE | 2016-10-30 20:40 | NUR ---
YORDY ELIZABETH AT BEDSIDE TO SEE PT. INFORMED THAT BLOOD PRESSURE HAS DROPPED TO 102/44, PT GETTING SECOND OF 2 LITERS OF IVF. TEMP 101.4 AFTER TYLENOL
--- NOTE | 2016-10-30 21:28 | NUR ---
REPORT CALLED TO YAAKOV FRAGOSO ON GEN MED UNIT
--- NOTE | 2016-10-30 21:28 | NUR ---
HOUSE STAFF IN TO SEE PT. NTG PATCH REMOVED BY HOUSE STAFF
[2016-10-30 22:43] VITALS: BP 108/50
--- NOTE | 2016-10-31 00:31 | NUR ---
PT ADMITTED FROM ER TO ROOM 209-2 FOR LEFT LEG CELLULITUS. ORIENTED TO ROOM, CALL NOWAK, STAFF , ETC. ALERT AND ORIENTED X 3. RA. DEAN IN PLACE DRAINING CLEAR YELLOW URINE. REDNESS, WAMRTH AND SWELLING TO BLE, LEFT GREATER THAT RIGHT. IV FLUIDS INITIATED ORDERED. VSS. DENIES PAIN. WILL CONTINUE TO MONITOR.
--- NOTE | 2016-10-31 02:03 | Admission Certification ---
Admission Certification Certification Statement - As attending physician, I certify that at the time of - admission, based on clinical presentation, severity of - symptoms, need for further diagnostic testing and - therapeutic interventions, and risk of adverse outcomes - without in-hospital treatment, in my clinical assessment, - this patient requires an acute hospital stay for a minimum - of two nights or longer. I have also considered psychsocial - factors such as support system, advanced age, financial - issues, cognitive issues, and failed out-patient treatments, - past re-admission history, safety of patient, and lack of - compliance as applicable. Specific rationale supporting this admission is: Left lower extremity cellulitis and acute kidney injury
--- NOTE | 2016-10-31 06:59 | RADIOLOGY REPORT ---
EXAMINATION: XR PORTABLE CHEST CLINICAL INFORMATION: Bilateral lower extremity pitting edema. COMPARISON: 04/13/16 TECHNIQUE: Frontal portable sitting view of the chest FINDINGS: Lordotic projection. Rotation toward the right. Tortuous aorta. Cardiac size within normal limits. The central vessels are prominent, superiorly redistributed and slightly indistinct. There is no alveolar edema or dense focal pneumonia or large zone of atelectasis. There is hypoinflation. No significant pleural fluid or pneumothorax. IMPRESSION: No acute focal pneumonia or large area of atelectasis. No alveolar edema. Central vascular prominence with some mild indistinctness could reflect minimal interstitial edema
--- NOTE | 2016-10-31 07:18 | PN- Housestaff ---
Subjective Follow-up For: LLE Cellulitis GODWIN Subjective: I saw and examined the patient today. Pt states she is having continued left lower leg pain. Pt states she had a fracture on her foot which she has kept in her boot. Pt has been on antibiotics - was sent home on bactrim. States it did not help, and the cellulitis worsened. States she completed the course minus one dose. Pt states she has been taking NSAIDs for the pain every 4 hours due to the pain for the past week which has not helped. Overnight pt denies any acute events. Pt has pain in her leg today- she rates a 9.5/10, pt denies abdominal pain/chest pain. Denies SOB, dysuria/hematuria. No fever overnight but did complain of chills. Pt has numbness of her left foot as well. Review of Systems Constitutional: Reports: see HPI. Cardiovascular: Denies: see HPI. Respiratory: Denies: see HPI. Gastrointestinal: Denies: see HPI. Genitourinary: Denies: see HPI. Musculoskeletal: Reports: see HPI. Skin: Reports: see HPI. Objective Last 24 Hrs of Vital Signs/I&O Vital Signs Date Time Temp Pulse Resp B/P B/P Pulse O2 O2 Flow FiO2 Mean Ox Delivery Rate 10/31 0721 98.3 70 18 134/78 92 10/30 2243 98.2 74 20 108/50 93 Room Air 10/30 2215 Room Air 10/30 2125 100.4 75 20 106/42 94 Room Air 10/30 2038 101.4 73 18 102/44 93 Room Air 10/30 1851 101.6 10/30 1808 101.6 77 18 130/60 96 10/30 1605 98.6 68 18 118/57 93 Room Air 10/30 1414 99.4 71 16 94/52 93 Room Air 10/30 1157 99.8 75 20 90/53 97 Room Air Intake & Output 10/31 1600 10/31 0800 10/31 0000 Intake Total 920 1220 Output Total 600 1100 Balance 320 120 Intake, IV 800 1100 Intake, Oral 120 120 Output, Urine 600 1100 Patient 178 lb Weight Physical Exam General Appearance: Alert, Oriented X3, Cooperative, No Acute Distress HEENT: Atraumatic, PERRLA, EOMI, Mucous Membr. moist/pink Cardiovascular: Regular Rate, Normal S1, Normal S2 Lungs: Clear to Auscultation Abdomen: Normal Bowel Sounds, Soft, No Tenderness Extremities: No Edema, Normal Pulses, Left lower extremity from ankle to knee has circumferential erythema, warmth, and tenderness to palpation, no ulcer, blisters, or tear visible on skin. Assessment/Plan Assessment: Pt is an 86 yo F with a pmh significant for HTN, COPD not on home oxygen, spinal stenosis, disc herniation, fibromyalgia, arthritis, GERD, and constipation. She presented to the ED today with LLE cellulitis after failing outpatient antibiotic therapy. In the Ed she was given 1 dose of IV Unasyn, and a 2.5 L NS bolus. 1. Left Lower Leg Cellulitis After the dose of unasyn, her temperature sade to from 99.8 to 101.6. No urine eos were seen but this brings up concern for potential acute interstitial nephritis. - admit to gen med - c/w unasyn, if fever or increase in Cr switch to clindamycin - repeat blood cultures today - f/u lactic acid, 1.0 on admission - pain management - keep leg elevated - serum eosinophils noted - repeat CBC in AM 2. GODWIN - possibly due to combination of bactrim, NSAID use and poor PO intake BUN 43, creatinine of 3.5 (last creatinine was 1.0 two years ago) - Creatinine improved with IV hydration, will continue gentle hydration today and monitor Cr - renal ultrasound today - pt has scales in place due to urinary retention in ED - UA - normal #DVT prophylaxis DVT ruled out by U/S in ED - heparin SQ #Diet -heart healthy #code status -Full Code Problem List: 1. Cellulitis Pain Ratin Pain Location: LLE Pain Goal: Pain 7 or less Pain Plan: Percocet Tomorrow's Labs & Rationales: cbc - infection bep - trend Cr
[2016-10-31 07:21] VITALS: BP 134/78
--- NOTE | 2016-10-31 08:39 | RADIOLOGY REPORT ---
EXAMINATION: XR FOOT, LEFT CLINICAL INFORMATION: Left foot cellulitis. COMPARISON: 10/18/2016 TECHNIQUE: AP, lateral, oblique views of the left foot were obtained. FINDINGS: Again identified is hallux valgus. There is a midshaft left 5th metatarsal fracture. Alignment is stable. There is overlying soft tissue swelling. There are small calcaneal spurs. No acute osseous injury is demonstrable. IMPRESSION: Stable alignment of left 5th metatarsal fracture. Hallux valgus. Small calcaneal spurs.
[2016-10-31 09:26] LABS: ABSOLUTE BASOPHIL COUNT 0 /CUMM (0.0-0.2); ABSOLUTE EOSINOPHIL COUNT 0.6 /CUMM (0.0-0.7); ABSOLUTE GRANULOCYTE CT 2.4 /CUMM (1.4-6.5); ABSOLUTE MONOCYTE COUNT 0.3 /CUMM (0.10-0.60); BASOPHIL % 0.4 % (0.0-2.0); EOSINOPHIL % 14.5 % (0-5); MEAN CORPUSCULAR HGB 31.5 PG (27.0-31.0); MEAN CORPUSCULAR HGB CONC 33.4 G/DL (33.0-37.0); MEAN CORPUSCULAR VOLUME 94.2 FL (81.0-99.0); MEAN PLATELET VOLUME 8.9 FL (7.4-10.4); PLATELET COUNT 186 /CUMM (130-400); RBC DISTRIBUTION WIDTH 13.7 % (11.5-14.5); RED BLOOD CELL CT 2.76 /CUMM (4.20-5.40); WHITE BLOOD CELL COUNT 4.4 /CUMM (4.8-10.8)
--- NOTE | 2016-10-31 13:54 | PN- Att Addend ---
Attending Addendum Attending Brief Note Patient seen and examined. Plan of care discussed with the medical team and the patient. Available lab work and radiology test reports were reviewed. Patient does not report any fever or chills. She denies any nausea vomiting abdominal pain or diarrhea. She appears comfortable and is sitting in chair this morning. Assessment * Acute renal failure- creatinine gradually improving; possible etiologies include dehydration and acute interstitial nephritis given peripheral eosinophilia * Peripheral eosinophilia- ? Interstitial nephritis or allergic drug reaction, although patient does not have any clear rash * Fever- out of proportion to her cellulitis. No other clear etiology fever is noted * Mild left leg cellulitis * Left fifth metatarsal fracture new due to trauma * History of COPD * History of hypertension * History spinal stenosis * History of fibromyalgia, chronic arthritis and disc herniation Plan * Continue IV fluids * Obtain renal ultrasound to rule out any structural abnormalities or stone or hydronephrosis * Continue to monitor for fever * Repeat blood cultures x 2 * Elevate left leg * Repeat BEP tomorrow * Patient's CBC tomorrow to follow for eosinophilia Exam: General: Patient awake alert oriented without any distress CVS: S1 plus S2 without any murmur or gallops Chest: Few scattered crepitation without any wheeze. There is no respiratory distress. 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 Slight edema of the foot is noted Vital Signs Date Time Temp Pulse Resp B/P B/P Pulse O2 O2 Flow FiO2 Mean Ox Delivery Rate 10/31 1040 Room Air 10/31 1040 96 Room Air 10/31 0721 98.3 70 18 134/78 92 10/30 2243 98.2 74 20 108/50 93 Room Air 10/30 2215 Room Air 10/30 2125 100.4 75 20 106/42 94 Room Air 10/30 2038 101.4 73 18 102/44 93 Room Air 10/30 1851 101.6 10/30 1808 101.6 77 18 130/60 96 10/30 1605 98.6 68 18 118/57 93 Room Air 10/30 1414 99.4 71 16 94/52 93 Room Air Laboratory Tests 10/31/16 0715: Anion Gap 10, Estimated GFR 19 L, BUN/Creatinine Ratio 13.3, CBC w Diff NO MAN DIFF REQ, RBC 2.76 L, MCV 94.2, MCH 31.5 H, RDW 13.7, MPV 8.9, Gran % 54.0, Lymphocytes % 23.3, Monocytes % 7.8, Eosinophils % 14.5 H, Basophils % 0.4, Absolute Granulocytes 2.4, Absolute Lymphocytes 1.0 L, Absolute Monocytes 0.3, Absolute Eosinophils 0.6, Absolute Basophils 0, PUBS MCHC 33.4 10/31/16 0030: Lactic Acid 0.7 10/30/161929: Ur Eosinophil Smear NONE SEEN 10/30/161929: Urine Color YEL, Urine Clarity CLEAR, Urine pH 6.0, Ur Specific [place] 1.010, Urine Protein NEG, Urine Ketones NEG, Urine Nitrite NEG, Urine Bilirubin NEG, Urine Urobilinogen 1.0, Ur Leukocyte Esterase NEG, Ur Microscopic EXAM NOT REQUIRED, Urine Hemoglobin NEG, Urine Glucose NEG 10/30/16 1614: Lactic Acid Cancelled 10/30/16 1600: Anion Gap 12, Estimated GFR 12 L, BUN/Creatinine Ratio 12.3, Glucose 88, Lactic Acid 1.0, Calcium 9.0, Total Bilirubin 0.4, AST 32, ALT 40, Alkaline Phosphatase 77, Vxb-L-Gqntvakqydw Pept 2050 H, Total Protein 6.1 L, Albumin 3.7, Globulin 2.4, Albumin/Globulin Ratio 1.5, CBC w Diff NO MAN DIFF REQ, RBC 3.21 L, MCV 93.8, MCH 31.7 H, RDW 13.9, MPV 8.1, Gran % 60.5, Lymphocytes % 17.9 L, Monocytes % 7.1, Eosinophils % 14.2 H, Basophils % 0.3, Absolute Granulocytes 2.7, Absolute Lymphocytes 0.8 L, Absolute Monocytes 0.3, Absolute Eosinophils 0.6, Absolute Basophils 0, PUBS MCHC 33.8 10/30/16 1336: Avs-U-Cenhekxwisd Pept Cancelled Microbiology 10/31 1302 BLOOD: Blood Culture - RECD 10/31 1117 BLOOD: Blood Culture - COLB 10/30 2104 URINE ROUT: Urine Culture - COLB 10/30 1600 BLOOD: Blood Culture - RES 10/30 1314 BLOOD: Blood Culture - CAN Cancelled: SPECIMEN NEVER RECEIVED. REORDER IF NEEDED
[2016-10-31 14:26] VITALS: BP 132/60
--- NOTE | 2016-10-31 15:06 | ULTRASOUND REPORT ---
EXAMINATION: US RETROPERITONEAL COMPLETE (RENAL) CLINICAL INFORMATION: Elevated creatinine. Urinary retention. Presumptive diagnosis of acute renal insufficiency, possibly postobstructive. Patient states history of kidney stone, passed spontaneously. COMPARISON: CT scan of the abdomen and pelvis dated 03/02/2014. Renal ultrasound dated 02/02/2014. TECHNIQUE: Real-time imaging of the kidneys and bladder. FINDINGS: RIGHT KIDNEY: 9.7 x 4.8 x 4.2 cm (SAG x AP x TRV). The kidney is normal in size, contour, and echogenicity. Renal cortical thickness is normal. No calculi or suspicious focal parenchymal lesions. There is a exophytic 0.7 x 0.7 x 0.8 cm simple cyst in the upper pole of the right kidney. No hydronephrosis. LEFT KIDNEY: 9.5 x 5.2 x 4.8 cm (SAG x AP x TRV). The kidney is asymmetrically slightly smaller with increased renal cortical echogenicity and decrease in the cortical thickness compared to the contralateral side. No calculi or focal parenchymal lesions. No hydronephrosis. BLADDER: Not adequately visualized since it is decompressed with Perry catheter. IMPRESSION: 1. Asymmetrically slightly smaller left kidney with renal cortical thinning and increased echogenicity seen. Findings may be related to renal vascular disease. Close clinical correlation is requested. 2. Benign-appearing cyst in the upper pole of the right kidney. No other renal lesion seen. 3. Bladder not adequately assessed.
[2016-10-31 22:20] VITALS: BP 122/60
[2016-11-01 06:37] VITALS: BP 134/68
[2016-11-01 08:07] LABS: ABSOLUTE BASOPHIL COUNT 0 /CUMM (0.0-0.2); ABSOLUTE EOSINOPHIL COUNT 0.6 /CUMM (0.0-0.7); ABSOLUTE GRANULOCYTE CT 1.8 /CUMM (1.4-6.5); ABSOLUTE LYMPH COUNT 1.7 /CUMM (1.2-3.4); ABSOLUTE MONOCYTE COUNT 0.4 /CUMM (0.10-0.60); BASOPHIL % 0.6 % (0.0-2.0); EOSINOPHIL % 13.9 % (0-5); GRANULOCYTE % 39.2 % (42.2-75.2); HEMATOCRIT 26.4 % (37-47); MEAN CORPUSCULAR HGB 31.6 PG (27.0-31.0); MEAN CORPUSCULAR HGB CONC 33.5 G/DL (33.0-37.0); MEAN CORPUSCULAR VOLUME 94.5 FL (81.0-99.0); MEAN PLATELET VOLUME 8.8 FL (7.4-10.4); PLATELET COUNT 206 /CUMM (130-400); RBC DISTRIBUTION WIDTH 14.4 % (11.5-14.5); WHITE BLOOD CELL COUNT 4.5 /CUMM (4.8-10.8)
--- NOTE | 2016-11-01 08:07 | PN- Housestaff ---
Subjective Follow-up For: LLE Cellulitis GODWIN Subjective: Pt states she is doing well. Pt states she has some SOB, denies cough, pt saturating in high 90s on RA. Pt states she has mild left leg pain. Denies abdominal pain, fever, chills, n/v/c/d. Review of Systems Constitutional: Denies: no symptoms. Cardiovascular: Denies: no symptoms. Respiratory: Reports: see HPI. Gastrointestinal: Denies: no symptoms. Genitourinary: Denies: no symptoms. Musculoskeletal: Reports: see HPI. Objective Last 24 Hrs of Vital Signs/I&O Vital Signs Date Time Temp Pulse Resp B/P B/P Pulse O2 O2 Flow FiO2 Mean Ox Delivery Rate 11/01 1717 99.1 11/01 1506 Room Air Room Air 11/01 1444 99.2 86 20 132/60 98 Room Air 11/01 1356 Room Air Room Air 11/01 0637 98.3 69 20 134/68 98 Room Air 10/31 2220 99.0 73 18 122/60 97 10/31 2120 96 Room Air Intake & Output 11/01 1600 11/01 0800 11/01 0000 Intake Total 900 720 420 Output Total 950 900 500 Balance -50 -180 -80 Intake, IV 600 600 300 Intake, Oral 300 120 120 Number 0 1 Bowel Movements Output, Urine 950 900 500 Physical Exam General Appearance: Alert, Oriented X3, Cooperative, No Acute Distress HEENT: Atraumatic, Mucous Membr. moist/pink Cardiovascular: Regular Rate, Normal S1, Normal S2 Lungs: Clear to Auscultation Abdomen: Normal Bowel Sounds, Soft, No Tenderness Extremities: mild tenderness to palpation of LLE, with minimal erythema, dorsalis pedis pulses 2+ bilaterally, no edema Assessment/Plan Assessment: Pt is an 86 yo F with a pmh significant for HTN, COPD not on home oxygen, spinal stenosis, disc herniation, fibromyalgia, arthritis, GERD, and constipation. She presented to the ED today with LLE cellulitis after failing outpatient antibiotic therapy. In the Ed she was given 1 dose of IV Unasyn, and a 2.5 L NS bolus. 1. Left Lower Leg Cellulitis After the dose of unasyn, her temperature sade to from 99.8 to 101.6. No urine eos were seen but this brings up concern for potential acute interstitial nephritis. - admit to gen med - c/w unasyn, if fever or increase in Cr switch to clindamycin - repeat blood cultures today - f/u lactic acid, 1.0 on admission - pain management - keep leg elevated - serum eosinophils noted - repeat CBC in AM 2. GODWIN - possibly due to combination of bactrim, NSAID use and poor PO intake BUN 43, creatinine of 3.5 (last creatinine was 1.0 two years ago) - Creatinine improved with IV hydration, will continue gentle hydration today and monitor Cr - renal ultrasound today - pt has scales in place due to urinary retention in ED - UA - normal #DVT prophylaxis DVT ruled out by U/S in ED - heparin SQ #Diet -heart healthy #code status -Full Code Problem List: 1. Cellulitis 2. Foot fracture Pain Ratin Pain Location: Left leg and foot Pain Goal: Pain 4 or less Pain Plan: Tylenol PO for mild pain Percocet PRN for moderate to severe pain Tomorrow's Labs & Rationales: bep
--- NOTE | 2016-11-01 08:19 | PN- Att Addend ---
Attending Addendum Attending Brief Note Patient seen and examined. Plan of care discussed with the medical team and the patient. Available lab work and radiology test reports were reviewed. Patient does not report any fever or chills. She denies any nausea vomiting abdominal pain or diarrhea. She appears comfortable and is sitting in chair this morning. She reports mild difficulty breathing this morning but denies any sputum production or fever or chills. Assessment * Acute renal failure- creatinine gradually improving; possible etiologies include dehydration and acute interstitial nephritis given peripheral eosinophilia. Currently no indication for steroid use for acute interstitial nephritis given the creatinine is improving. Note the patient's baseline creatinine is 1.0 as of December 2014. * Peripheral eosinophilia- ? Interstitial nephritis or allergic drug reaction, although patient does not have any clear rash * Fever- out of proportion to her cellulitis. No other clear etiology for fever is noted * Mild left leg cellulitis * Left fifth metatarsal fracture new due to trauma * History of COPD * History of hypertension * History spinal stenosis * History of fibromyalgia, chronic arthritis and disc herniation * Mild fluid overload Plan * Discontinue IV fluids * Continue to monitor saturation. If patient has increasing difficulty breathing and saturation drops should be given IV Lasix 20-40 mg 1 * Discontinue IV Unasyn and begin oral Augmentin 875 mg twice a day to complete a total of 7 days course. * Elevate left leg * Repeat BEP tomorrow Exam: General: Patient awake alert oriented without any distress CVS: S1 plus S2 without any murmur or gallops Chest: Few scattered crepitation without any wheeze. There is no respiratory distress. 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 Slight edema of the foot is noted Vital Signs Date Time Temp Pulse Resp B/P B/P Pulse O2 O2 Flow FiO2 Mean Ox Delivery Rate 11/01 0637 98.3 69 20 134/68 98 Room Air 10/31 2220 99.0 73 18 122/60 97 10/31 2120 96 Room Air 10/31 1617 99.4 10/31 1426 98.0 70 20 132/60 93 Room Air 10/31 1040 Room Air 10/31 1040 96 Room Air Intake & Output 11/01 1600 11/01 0800 11/01 0000 Intake Total 720 420 Output Total 900 500 Balance -180 -80 Intake, IV 600 300 Intake, Oral 120 120 Number 1 Bowel Movements Output, Urine 900 500 Renal US 1. Asymmetrically slightly smaller left kidney with renal cortical thinning and increased echogenicity seen. Findings may be related to renal vascular disease. Close clinical correlation is requested. 2. Benign-appearing cyst in the upper pole of the right kidney. No other renal lesion seen. 3. Bladder not adequately assessed. Laboratory Tests 11/01/16 0630: Anion Gap 10, Estimated GFR 27 L, BUN/Creatinine Ratio 13.9, Phosphorus 3.6, Magnesium 1.9, CBC w Diff NO MAN DIFF REQ, RBC 2.80 L, MCV 94.5, MCH 31.6 H, RDW 14.4, MPV 8.8, Gran % 39.2 L, Lymphocytes % 37.1, Monocytes % 9.2, Eosinophils % 13.9 H, Basophils % 0.6, Absolute Granulocytes 1.8, Absolute Lymphocytes 1.7, Absolute Monocytes 0.4, Absolute Eosinophils 0.6, Absolute Basophils 0, PUBS MCHC 33.5 10/31/16 0715: Anion Gap 10, Estimated GFR 19 L, BUN/Creatinine Ratio 13.3, CBC w Diff NO MAN DIFF REQ, RBC 2.76 L, MCV 94.2, MCH 31.5 H, RDW 13.7, MPV 8.9, Gran % 54.0, Lymphocytes % 23.3, Monocytes % 7.8, Eosinophils % 14.5 H, Basophils % 0.4, Absolute Granulocytes 2.4, Absolute Lymphocytes 1.0 L, Absolute Monocytes 0.3, Absolute Eosinophils 0.6, Absolute Basophils 0, PUBS MCHC 33.4 10/31/16 0030: Lactic Acid 0.7 10/30/16 1930: Ur Eosinophil Smear NONE SEEN 10/30/161929: Urine Color YEL, Urine Clarity CLEAR, Urine pH 6.0, Ur Specific [place] 1.010, Urine Protein NEG, Urine Ketones NEG, Urine Nitrite NEG, Urine Bilirubin NEG, Urine Urobilinogen 1.0, Ur Leukocyte Esterase NEG, Ur Microscopic EXAM NOT REQUIRED, Urine Hemoglobin NEG, Urine Glucose NEG 10/30/16 1614: Lactic Acid Cancelled 10/30/16 1600: Anion Gap 12, Estimated GFR 12 L, BUN/Creatinine Ratio 12.3, Glucose 88, Lactic Acid 1.0, Calcium 9.0, Total Bilirubin 0.4, AST 32, ALT 40, Alkaline Phosphatase 77, Cgz-F-Xeimujktflp Pept 2050 H, Total Protein 6.1 L, Albumin 3.7, Globulin 2.4, Albumin/Globulin Ratio 1.5, CBC w Diff NO MAN DIFF REQ, RBC 3.21 L, MCV 93.8, MCH 31.7 H, RDW 13.9, MPV 8.1, Gran % 60.5, Lymphocytes % 17.9 L, Monocytes % 7.1, Eosinophils % 14.2 H, Basophils % 0.3, Absolute Granulocytes 2.7, Absolute Lymphocytes 0.8 L, Absolute Monocytes 0.3, Absolute Eosinophils 0.6, Absolute Basophils 0, PUBS MCHC 33.8 10/30/16 1336: Ffq-X-Ddcrxmjnsgo Pept Cancelled Microbiology 10/31 1302 BLOOD: Blood Culture - RES 10/31 1117 BLOOD: Blood Culture - CAN Cancelled: SPECIMEN NOT RECEIVED IN LABORATORY 10/30 1930 URINE ROUT: Urine Culture - RES 10/30 1600 BLOOD: Blood Culture - RES 10/30 1314 BLOOD: Blood Culture - CAN Cancelled: SPECIMEN NEVER RECEIVED. REORDER IF NEEDED
[2016-11-01 14:44] VITALS: BP 132/60
--- NOTE | 2016-11-01 19:04 | Patient Discharge Instructions ---
Discharge Instructions General Discharge Information You were seen/treated for: Left Leg Cellulitis Acute Kidney Failure Watch for these problems: 1. Worsening leg pain 2. Fever, chills, nausea or vomitting Special Instructions: 1. Follow up with your PCP in 1 week 2. Complete your full course of antibiotics with meals to prevent GI upset 3. Please restart lasix, spirnolactone and potassium supplement on 11/03/2016. 4. Please get a BEP on 11/06/2016. Diet Continue normal diet: Yes Activity Full Activity/No Limits: No Activity Self Limited: Yes Acute Coronary Syndrome Inclusion Criteria At DC or during hospital stay patient has or had the following: ACS DIAGNOSIS No Discharge Core Measures Meds if any: Prescribed or Continued at Discharge Meds if any: NOT Prescribed or Continued at Discharge Congestive Heart Failure Inclusion Criteria At DC or during hospital stay patient has or had the following: CHF DIAGNOSIS No Discharge Core Measures Meds if any: Prescribed or Continued at Discharge Meds if any: NOT Prescribed or Continued at Discharge Cerebrovascular accident Inclusion Criteria At DC or during hospital stay patient has or had the following: CVA/TIA Diagnosis No Discharge Core Measures Meds if any: Prescribed or Continued at Discharge Meds if any: NOT Prescribed or Continued at Discharge Venous thromboembolism Inclusion Criteria VTE Diagnosis No VTE Type NONE VTE Confirmed by (Test) NONE Discharge Core Measures - Per Current guidelines, there needs to be overlap - treatment for the first 5 days of Warfarin therapy. - If discharged on Warfarin prior to 5 days of - overlap therapy, the patient will need to be - assessed for post discharge needs including - *Post discharge parental anticoagulation - *Warfarin and/or parental anticoagulation education - *Follow up date to check INR post discharge At least 5 days overlap therapy as Inpatient No Meds if any: Prescribed or Continued at Discharge Note: Overlap Therapy is Warfarin and Anticoagulant Meds if any: NOT Prescribed or Continued at Discharge
--- NOTE | 2016-11-01 19:24 | Discharge Summary ---
Visit Information Visit Dates Admission Date: 10/30/16 Hospital Course Course Attending Physician: ALEXANDRA VERDUZCO,KIMBERLY Primary Care Physician: RAND ORELLANA MD Hospital Course: Pt is an 86 yo F with a pmh significant for HTN, COPD not on home oxygen, spinal stenosis, disc herniation, fibromyalgia, arthritis, GERD, and constipation. She presented to the ED today with LLE cellulitis after failing outpatient antibiotic therapy. On admission: Vitals: blood pressure 90/53, pulse 75, temperature 99.8, respirations 20, pulse ox 97% on room air. Labs: WBC 4.4, 60% granulocytes, no bandemia, with eosinophilia 14.2%, H&H is 10.1/30.1, platelet 238, chemistry shows increased creatinine of 3.5 (last creatinine was 1.0 two years ago), BUN 43, sodium 135, potassium 5.0, glucose 88 , lactic acid 1.0. Her proBNP was high 0. Urinalysis was negative and no eosinophilia in the smear. Bilateral lower extremity doppler ultrasound did not reveal any DVT or ruptured Pettit's cyst. Xray of Left Foot: Stable alignment of left 5th metatarsal fracture. Hallux valgus. Small calcaneal spurs. In the ED she was given 1 dose of IV Unasyn, and a 2.5 L NS bolus which improved her BP to 130/60, HR: 77. Pt admitted to general medicine for management of the following : Allergies: Coded Allergies: NO KNOWN ALLERGIES (01/03/11) Disposition Summary Disposition Principal Diagnosis: Left Lower Extremity Cellulitis Additional Diagnosis: Acute Kidney Injury Discharge Disposition: home or self care Discharge Instructions Medications at Discharge Discharge Medications: Stop taking the following medications: Cephalexin (Keflex) 500 MG CAPSULE ORAL THREE TIMES DAILY Qty = 30 Sulfamethoxazole/Trimethoprim (Sulfamethoxazole-Tmp Ds Tablet) 800 MG-160 MG TABLET ORAL TWICE DAILY Qty = 14 Continue taking these medications: Oxycodone HCl/Acetaminophen (Percocet 7.5-325 MG Tablet) 7.5 MG-325 MG TABLET 1 Tablet ORAL THREE TIMES DAILY as needed for PAIN Qty = 60 Comments: Last Taken: 11/01/16 Time: 2130PM Linaclotide (Linzess) 145 MCG CAPSULE 1 Capsule ORAL DAILY Qty = 30 Comments: Last Taken: 11/02/16 Time: 10AM Lubiprostone (Amitiza) 24 MCG CAPSULE 1 Capsule ORAL TWICE DAILY Qty = 60 Comments: Last Taken: 11/01/16 Time: 2130PM Furosemide (Furosemide) 40 MG TABLET 1 Tablet ORAL QAM Qty = 30 Comments: NOT GIVEN IN HOSPITAL Esomeprazole (Nexium) 40 MG CAPSULE.DR 1 Capsule ORAL Every Morning Qty = 30 Comments: PRILOSEC GIVEN IN HOSPITAL Last Taken: 11/02/16 Time: 6AM Aspirin (Lo-Dose Aspirin EC) 81 MG TABLET.DR 1 Tablet ORAL DAILY Qty = 30 Comments: Last Taken: 11/02/16 Time: 10AM Losartan Potassium (Losartan Potassium) 25 MG TABLET 1 Tablet ORAL Every night Qty = 30 Comments: NOT GIVEN IN HOSPITAL Potassium Chloride (Klor-Con M10) 10 MEQ TAB.ER.PRT 1 Tablet ORAL Every Morning Qty = 30 Comments: Last Taken: 11/02/16 Time: 10AM Metoprolol Succinate (Metoprolol Succinate) 25 MG TAB 1 Tablet ORAL Every night Qty = 30 Comments: NOT GIVEN IN HOSPITAL Cholecalciferol (Vitamin D3) (Vitamin D) 5,000 UNIT TABLET 1 Tablet ORAL Every Morning Comments: Last Taken: 10/31/16 Time: 9AM Polyethylene Glycol 3350 (Polyethylene Glycol 3350) 17 GRAM POWD.PACK 1 Packet ORAL DAILY Comments: NOT GIVEN IN HOSPITAL Budesonide/Formoterol Fumarate (Symbicort 160-4.5 Mcg Inhaler) 160 MCG-4.5 MCG/ ACTUATION HFA.AER.AD 2 Puff Inhale through mouth as needed for COPD Comments: Last Taken: 11/02/16 Time: 7AM Albuterol Sulfate (Albuterol Sulfate) 2.5 MG/3 ML (0.083 %) VIAL.NEB 1 Vial Inhale Solution THREE TIMES DAILY as needed for COPD Comments: Last Taken: 11/02/16 Time: 1045AM Nitroglycerin (Nitroglycerin Patch) 0.4 MG/HOUR PATCH.TD24 1 PATCH On the skin DAILY Qty = 30 Comments: NOT GIVEN IN HOSPITAL Start taking the following new medications: Augmentin (Augmentin 500-125 Tablet) 500 MG-125 MG TABLET 1 Tablet ORAL EVERY 12 HOURS Qty = 10 No Refills Comments: Last Taken: 11/02/16 Time: 10AM
[2016-11-01 22:19] VITALS: BP 128/58
[2016-11-02 06:13] VITALS: BP 116/60
--- NOTE | 2016-11-02 07:55 | PN- Housestaff ---
See Addendum Subjective Follow-up For: Cellulitis GODWIN Subjective: Pt states she feels nauseous this morning and was unable to eat breakfast. States this is a normal occurrence for her. Takes nexium at home to help. Pt denies leg pain, fever/chills, vomitting, c/d, SOB or chest pain. Review of Systems Constitutional: Denies: no symptoms. Cardiovascular: Denies: no symptoms. Respiratory: Denies: no symptoms. Gastrointestinal: Reports: see HPI, nausea. Genitourinary: Denies: no symptoms. Musculoskeletal: Denies: no symptoms. Objective Last 24 Hrs of Vital Signs/I&O Vital Signs Date Time Temp Pulse Resp B/P B/P Pulse O2 O2 Flow FiO2 Mean Ox Delivery Rate 11/02 0613 98.4 73 20 116/60 94 Room Air 11/01 2219 99.3 79 20 128/58 95 Room Air 11/01 1717 99.1 11/01 1506 Room Air Room Air 11/01 1444 99.2 86 20 132/60 98 Room Air 11/01 1356 Room Air Room Air Intake & Output 11/02 1600 11/02 0800 11/02 0000 Intake Total 915 Output Total 400 750 Balance -400 165 Intake, IV 75 Intake, Oral 840 Output, Urine 400 750 Physical Exam General Appearance: Alert, Oriented X3, Cooperative Cardiovascular: Regular Rate, Normal S1, Normal S2 Lungs: Clear to Auscultation Abdomen: Normal Bowel Sounds, Soft, No Tenderness Extremities: minimal erythema of left lower calf, no tenderness to palpation or warmth Assessment/Plan Assessment: Pt is an 86 yo F with a pmh significant for HTN, COPD not on home oxygen, spinal stenosis, disc herniation, fibromyalgia, arthritis, GERD, and constipation. She presented to the ED today with LLE cellulitis after failing outpatient antibiotic therapy. In the Ed she was given 1 dose of IV Unasyn, and a 2.5 L NS bolus. Pt admitted to general medicine for management of the followin. Left Lower Leg Cellulitis, recent h/o of Left 5th metatarsal fx - stable on imaging After the dose of unasyn, her temperature sade to from 99.8 to 101.6. No urine eos were seen but this brings up concern for potential acute interstitial nephritis. Serum eosinophils seen only. - pt received 1 dose of Unasyn in the ED. Pt was switched to Augmentin PO yesterday. Continue for 5 more days after discharge. - Pt has been afebrile with normal WBC count. - repeat blood cultures yesterday and day before with no growth to date - lactic acid 1.0 on admission, repeat was 0.7 - pain controlled with PO tylenol. Pt has chronic back pain on percocet. - keep leg elevated 2. GODWIN - due to combination of bactrim, NSAID use and poor PO intake. AIN was initially suspected but no eosinophils in urine, peripheral eosinophils only. Creatinine has improved with IV fluid hydration and removal of causitive agents (NSAIDs and bactrim). BUN 43, creatinine of 3.5 on admission (last creatinine was 1.0 two years ago) - Creatinine improved with IV hydration, IVF stopped yesterday - Creatinine improved to 1.3 today - renal ultrasound: IMPRESSION: 1. Asymmetrically slightly smaller left kidney with renal cortical thinning and increased echogenicity seen. Findings may be related to renal vascular isease. Close clinical correlation is requested. 2. Benign-appearing cyst in the upper pole of the right kidney. No other renal lesion seen. - pt initially had scales placed in ED due to urinary retention. Scales was removed yesterday. Pt has no s/s. - UA - normal - pt discharged today. Can resume lasix, spirnolactone and potassium supplement tomorrow, 11/03/2016 and will require repeat BEP on 11/06/2016 and follow up with PCP. History of COPD - continue inhalers History of hypertension - restart lasix, spirnolactone on 11/03, held this admission due to GODWIN History spinal stenosis History of fibromyalgia, chronic arthritis and disc herniation - continue home meds DVT prophylaxis DVT ruled out by U/S in ED - heparin SQ Diet -heart healthy code status -Full Code Dispo: STR today pending bed availability Problem List: 1. Cellulitis 2. Foot fracture 3. Acute kidney failure Pain Ratin Pain Location: left leg Pain Goal: Remain pain free Pain Plan: tylenol PRN percocet (for chronic back pain) Tomorrow's Labs & Rationales: none
[2016-11-02] MEDS ORDERED: AUGMENTIN 500-1 EACH PO (09:06)
[2016-11-02 11:06] VITALS: BP 116/60
--- NOTE | 2016-11-02 12:39 | Discharge Summary ---
Visit Information Visit Dates Admission Date: 10/30/16 Discharge Date: 11/02/2016 Hospital Course Course Attending Physician: Tyler Dye Primary Care Physician: RAND ORELLANA MD Hospital Course: Pt is an 86 yo F with a PMH significant for HTN, COPD , spinal stenosis, disc herniation, fibromyalgia, arthritis, GERD, and constipation. She was SIB PCP Dr. Nunn for unresolving LLE cellulitis. Approximately two weeks ago she suffered a fall, and broke her 5th metatarsal. She presented to the ED on 10/18 with erythema, swelling, and tenderness, she was discharged on cephalexin. Her PCP switched her to bactrim. Despite antibiotic treatment the redness continued to spread, the pain became worse and the pt experienced nightly fevers and chills Pt seen for the following problems on [facility] floor: L. Leg Cellulitis: Initially started on Unasyn. Was febrile up to 101 in hospital. Now over 24 hrs since last fever and WBC nromal. BCX NGTD. Lactic acid never elevated. * Switched on PO Augmentin to complete total 7 day course * pain management wtih tyelnol and her home percocet * keep leg elevated ARF: Pt had initial BMP with: BUN 43, creatinine of 3.5 (last creatinine was 1.0 two years ago). ARF likely due to combination of bactrim, NSAID use and poor PO intake. AIN was initially suspected but no eosinophils in urine, peripheral eosinophils only. Creatinine has improved with IV fluid hydration and removal of causitive agents (NSAIDs and bactrim). * Note she seemed to become slightly overloaded but we d.c fluid. Can give 1x 20-40mg lasix if she clinically requires on outpatient basis. * Hold MARCELO/ARB/LASIX until 11/03/2016 then restart * Monitor BEP regularly; next one on 11/06/2016. * BUN 19 anc Cr 1.3 on D/C History of COPD History of hypertension History spinal stenosis History of fibromyalgia, chronic arthritis and disc herniation Allergies: Coded Allergies: NO KNOWN ALLERGIES (01/03/11) Pertinent Lab Results: renal ultrasound: IMPRESSION: 1. Asymmetrically slightly smaller left kidney with renal cortical thinning and increased echogenicity seen. Findings may be related to renal vascular disease. Close clinical correlation is requested. 2. Benign-appearing cyst in the upper pole of the right kidney. No other renal lesion seen. - pt initially had scales placed in ED due to urinary retention. Scales was removed yesterday. Pt has no s/s. - UA - normal Disposition Summary Disposition Principal Diagnosis: CELLULITIS Additional Diagnosis: ARF Discharge Disposition: SNF Discharge Instructions General Discharge Information Code Status: Full Code Patient's Diet: TOLERATED Patient's Activity: TOELRATED Follow-Up Instructions/Appts: SEE ABOVE Medications at Discharge Discharge Medications: Stop taking the following medications: Cephalexin (Keflex) 500 MG CAPSULE ORAL THREE TIMES DAILY Qty = 30 Sulfamethoxazole/Trimethoprim (Sulfamethoxazole-Tmp Ds Tablet) 800 MG-160 MG TABLET ORAL TWICE DAILY Qty = 14 Continue taking these medications: Oxycodone HCl/Acetaminophen (Percocet 7.5-325 MG Tablet) 7.5 MG-325 MG TABLET 1 Tablet ORAL THREE TIMES DAILY as needed for PAIN Qty = 60 Comments: Last Taken: 11/01/16 Time: 2130PM Linaclotide (Linzess) 145 MCG CAPSULE 1 Capsule ORAL DAILY Qty = 30 Comments: Last Taken: 11/02/16 Time: 10AM Lubiprostone (Amitiza) 24 MCG CAPSULE 1 Capsule ORAL TWICE DAILY Qty = 60 Comments: Last Taken: 11/01/16 Time: 2130PM Furosemide (Furosemide) 40 MG TABLET 1 Tablet ORAL QAM Qty = 30 Comments: NOT GIVEN IN HOSPITAL Esomeprazole (Nexium) 40 MG CAPSULE.DR 1 Capsule ORAL Every Morning Qty = 30 Comments: PRILOSEC GIVEN IN HOSPITAL Last Taken: 11/02/16 Time: 6AM Aspirin (Lo-Dose Aspirin EC) 81 MG TABLET.DR 1 Tablet ORAL DAILY Qty = 30 Comments: Last Taken: 11/02/16 Time: 10AM Losartan Potassium (Losartan Potassium) 25 MG TABLET 1 Tablet ORAL Every night Qty = 30 Comments: NOT GIVEN IN HOSPITAL Potassium Chloride (Klor-Con M10) 10 MEQ TAB.ER.PRT 1 Tablet ORAL Every Morning Qty = 30 Comments: Last Taken: 11/02/16 Time: 10AM Metoprolol Succinate (Metoprolol Succinate) 25 MG TAB 1 Tablet ORAL Every night Qty = 30 Comments: NOT GIVEN IN HOSPITAL Cholecalciferol (Vitamin D3) (Vitamin D) 5,000 UNIT TABLET 1 Tablet ORAL Every Morning Comments: Last Taken: 10/31/16 Time: 9AM Polyethylene Glycol 3350 (Polyethylene Glycol 3350) 17 GRAM POWD.PACK 1 Packet ORAL DAILY Comments: NOT GIVEN IN HOSPITAL Budesonide/Formoterol Fumarate (Symbicort 160-4.5 Mcg Inhaler) 160 MCG-4.5 MCG/ ACTUATION HFA.AER.AD 2 Puff Inhale through mouth as needed for COPD Comments: Last Taken: 11/02/16 Time: 7AM Albuterol Sulfate (Albuterol Sulfate) 2.5 MG/3 ML (0.083 %) VIAL.NEB 1 Vial Inhale Solution THREE TIMES DAILY as needed for COPD Comments: Last Taken: 11/02/16 Time: 1045AM Nitroglycerin (Nitroglycerin Patch) 0.4 MG/HOUR PATCH.TD24 1 PATCH On the skin DAILY Qty = 30 Comments: NOT GIVEN IN HOSPITAL Start taking the following new medications: Augmentin (Augmentin 500-125 Tablet) 500 MG-125 MG TABLET 1 Tablet ORAL EVERY 12 HOURS Qty = 10 No Refills Comments: Last Taken: 11/02/16 Time: 10AM Copies To: ESTEBAN VERDUZCO,RAND Wall
== END 2016-11-02 13:10 | DRG 683 ==
LOC: ERH 11:48 → 2NB 19:27 → ERHI 19:27 → ENRESERV 20:22 → ENTRNSPT 21:27 → CMPTRNSPT 21:44 → 2NB 21:59
PROVIDERS: Emergency Medicine; Student in an Organized Health Care Education/Training Program; ADMIT Internal Medicine
DX: N17.9 Acute kidney failure, unspecified (principal); L03.116 Cellulitis of left lower limb; J44.9 Chronic obstructive pulmonary disease, unspecified; N28.1 Cyst of kidney, acquired; R63.0 Anorexia; S92.352D Displaced fracture of fifth metatarsal bone, left foot, subsequent encounter for fracture with routine healing; I10 Essential (primary) hypertension; M48.00 Spinal stenosis, site unspecified; M79.7 Fibromyalgia; M19.90 Unspecified osteoarthritis, unspecified site; K21.9 Gastro-esophageal reflux disease without esophagitis; K59.00 Constipation, unspecified; T37.0X5A Adverse effect of sulfonamides, initial encounter; T39.395A Adverse effect of other nonsteroidal anti-inflammatory drugs [NSAID], initial encounter; Z68.35 Body mass index [BMI] 35.0-35.9, adult; K44.9 Diaphragmatic hernia without obstruction or gangrene; G89.29 Other chronic pain
CPT/HCPCS: 2NBSP; 36415; 73630-LT; 76775; 81003; 82436; 87040; 87086; 93005; 93010; 93970; 96361; 96374; 97110-GO; 97116-GO; 97161-GP; 97530-GO; J1644; J2405; J3490